=== PATIENT | male | born 1980 | race Caucasian/White ===

== ENCOUNTER → 2017-01-06 | Outpatient (CLI) | payer OTHER ==
--- NOTE | 2017-01-07 16:19 | CR ---
EXAM DATE: 01/06/17 PATIENT'S AGE: 36 Patient: BRIDGET URIAS Facility: [place], [place] Site . Site : 1980 Study: XRay Extremity wrist [id number]/27/2017 4:10:28 PM Ordering Physician: Hansel Brooke Final Report: INDICATION: Wrist pain, unknown injury TECHNIQUE: Wrist radiograph 2 views right COMPARISON: None FINDINGS: Bones: Alignment is normal. No acute fractures or aggressive bone lesions identified. In particular, the scaphoid is unremarkable in appearance by radiography. Joint spaces: Unremarkable. The carpal rows are intact. Soft tissues: Unremarkable. No radiopaque foreign bodies are identified. IMPRESSION: 1. No acute osseous injuries are noted. Dictated by: Dariel Jerez MD @ 01/06/2017 22:57:13 (Electronic Signature) Report Signed by Proxy. [facility]
== END ==
LOC: MW.CHFP 15:59
PROVIDERS: ATTEND Physician Assistant
DX: M25.531 Pain in right wrist (principal)
CPT/HCPCS: 73100-26-RT; 73100-RT

== ENCOUNTER → 2017-02-01 | Outpatient (CLI) | payer OTHER ==
--- NOTE | 2017-02-01 15:09 | CR ---
EXAMINATION: Two-view chest (PA and Lateral views). HISTORY: Cough. FINDINGS: The trachea is midline. The cardiomediastinal silhouette is within normal limits. No pulmonary infil trates, effusions or pneumothorax. Osseous structures appear unremarkable. IMPRESSION: No acute cardiopulmonary process.
[2017-02-01 15:12] LABS: CHLORIDE,CL 102 mmol/L (98-110); SODIUM,NA 137 mmol/L (136-146)
== END ==
LOC: MW.CHFP 13:31
PROVIDERS: ATTEND Physician Assistant
DX: R05 Cough (principal); R63.4 Abnormal weight loss; E78.00 Pure hypercholesterolemia, unspecified
CPT/HCPCS: 36415; 71020; 71020-26; 80053; 80061; 84443; 85025; 85652; 86308

== ENCOUNTER 2020-06-20 20:17 | Emergency (ER) | payer BC, OTHER ==
[2020-06-20] MEDS ORDERED: Lidocaine 1% 10 ML MDV INJECT ONE (20:36)
[2020-06-20] MEDS ORDERED: Diphtheria,Pertussis(Acell),Tetanus Vaccine 0.5 ML Syringe IM ONE (20:36)
--- NOTE | 2020-06-20 20:41 | EDM.PDOC ---
ED HPI GENERAL MEDICAL PROBLEM - General Chief Complaint: Laceration Stated Complaint: right thumb laceration Time Seen by Provider: 06/20/20 20:26 - History of Present Illness INITIAL COMMENTS - FREE TEXT/NARRATIVE: History of present illness: [] Right-handed patient had finished chopping garlic while cooking and then he dropped a knife when he reached forward with his dominant right hand and cut his right thumb. He has a full-thickness laceration to the proximal right thumb. There is no neurovascular compromise. There is no severe pain. Bleeding is easily controlled with pressure. Patient has no other complaint. Review of systems: As per history of present illness and below otherwise all systems reviewed and negative. Past medical history: As per history of present illness and as reviewed below otherwise non contributory. Surgical history: As per history of present illness and as reviewed below otherwise noncontributory. Social history: No reported history of drug or alcohol abuse. Family history: As per history of present illness and as reviewed below otherwise noncontributory. Physical exam: Constitutional - well developed, well-nourished and in no acute distress HEENT - normocephalic, no evidence of trauma - external nose and mouth normal - no mass in neck and no JVD - mucosae moist EYES - full EOM, PERRL, no icterus - no evidence of inflammation, injection, or drainage Respiratory - no respiratory distress, equal bilateral expansion Musculoskeletal no gross deformity of long bones or joints - no tenderness, swelling or edema Neurologic - Alert and oriented times four - CN II-XII grossly intact - motor sensory and coordination symmetrically normal Psychiatric - appropriate mood and affect with normal thought content Hematologic - No petechiae or purpura - mucosa appropriate color and sclera not pale - normal nail bed color and refill Integument -is 1.5 cm laceration on the dorsal and radial edge of the proximal segment of the right thumb with full-thickness skin and dermis involvement but no tendon involvement. Patient has neurovascular integrity distally. Otherwise no rash or evidence of trauma - normal turgor Diagnostics: [] Therapeutics: [] Impression: [] Plan: [] Definitive disposition and diagnosis as appropriate pending reevaluation and review of above. R thumb Pain Score (Numeric/FACES): 3 - Related Data Allergies Allergy/AdvReac Type Severity Reaction Status Date / Time No Known Allergies Allergy Verified 06/20/20 20:37 Home Meds: Home Meds . [No Known Home Meds] 07/23/14 [History] ED ROS GENERAL - Review of Systems Review Of Systems: Comprehensive ROS is negative, except as noted in HPI. ED EXAM, SKIN/RASH Exam: See Below Text/Narrative:: My physical exam is in the HPI ED SKIN PROCEDURES - Laceration/Wound Repair Right Hand Appearance: Subcutaneous Distal NVT: Neuro & Vascular Intact Anesthetic Type: Local Local Anesthesia - Lidocaine (Xylocaine): 1% Plain Local Anesthetic Volume: 4cc Saline Irrigation (cc's): 100 Exploration/Debridement/Repair: Wound Explored, In a Bloodless Field Closed with: Sutures Lac/Wound length In cm: 1.5 Suture Size: 4-0 # of Sutures: 3 Suture Type: Nylon Drain Placement: No Sterile Dressing Applied: Nurse Tetanus Status Addressed: Yes Course - Vital Signs Last Recorded V/S: Last Vital Signs Temp 96.7 F L 06/20/20 20:25 Pulse 66 06/20/20 20:25 Resp 17 06/20/20 20:25 BP 122/66 06/20/20 20:25 Pulse Ox 98 06/20/20 20:25 - Orders/Labs/Meds Orders: Active Orders 24 hr Category Date Time Status Vaccines to be Administered [RC] PER UNIT ROUTINE Care 06/20/20 20:36 Active Meds: Medications Discontinued Medications Generic Name Dose Route Start Last Admin Trade Name Peg PRN Reason Stop Dose Admin Diphtheria/Tetanus/Acell Pertussis 0.5 ml 06/20/20 20:36 06/20/20 20:56 Adacel IM 06/20/20 20:37 0.5 ml .ONCE ONE Administration Lidocaine HCl 10 ml 06/20/20 20:36 06/20/20 20:56 Xylocaine 1% INJECT 06/20/20 20:37 Not Given ONETIME ONE Lidocaine HCl Confirm 06/20/20 20:51 06/20/20 20:56 Xylocaine-Mpf 1% Administered 06/20/20 20:52 10 ml Dose Administration 10 ml .ROUTE .STK-MED ONE Departure - Departure Time of Disposition: 21:14 Disposition: Home, Self-Care 01 Condition: Good Clinical Impression: Laceration of right thumb - Discharge Information Instructions: Laceration Care, Adult Referrals: PCP,None [Primary Care Provider] - Forms: ED Department Discharge Additional Instructions: Sutures out 7 to 10 days [facility] [address] [place] [address] [facility] [address] [place] [address] The following information is given to patients seen in the emergency department who are being discharged to home. This information is to outline your options for follow-up care. We provide all patients seen in our emergency department with a follow-up referral. The need for follow-up, as well as the timing and circumstances, are variable depending upon the specifics of your emergency department visit. If you don't have a primary care physician on staff, we will provide you with a referral. We always advise you to contact your personal physician following an emergency department visit to inform them of the circumstance of the visit and for follow-up with them and/or the need for any referrals to a consulting specialist. The emergency department will also refer you to a specialist when appropriate. This referral assures that you have the opportunity for follow-up care with a specialist. All of these measure are taken in an effort to provide you with optimal care, which includes your follow-up. Under all circumstances we always encourage you to contact your private physician who remains a resource for coordinating your care. When calling for follow-up care, please make the office aware that this follow-up is from your recent emergency room visit. If for any reason you are refused follow-up, please contact the [facility] Emergency Department at and asked to speak to the emergency department charge nurse. Sepsis Event Note (ED) - Focused Exam Vital Signs: Vital Signs Temp Pulse Resp BP Pulse Ox 06/20/20 20:25 96.7 F L 66 17 122/66 98 - My Orders Last 24 Hours: My Active Orders 06/20/20 20:36 Vaccines to be Administered [RC] PER UNIT ROUTINE - Assessment/Plan Last 24 Hours: My Active Orders 06/20/20 20:36 Vaccines to be Administered [RC] PER UNIT ROUTINE
== END 2020-06-20 21:25 | disposition home or self-care (01) ==
LOC: MW.ED 20:17
DX: S61.011A Laceration without foreign body of right thumb without damage to nail, initial encounter (principal); Z23 Encounter for immunization; W26.0XXA Contact with knife, initial encounter
CPT/HCPCS: 12001; 90471; 90715; 99282; J2001